=== PATIENT | male | born 2000 | race Hispanic/Latino ===

== ENCOUNTER 2021-09-16 13:10 | Emergency (ER) | payer SELFPAY ==
[2021-09-16 15:03] LABS: Urine Blood 3+ (Negative); Urine Glucose Negative (Negative); Urine Protein 3+ (Negative); Urine Specific Gravity 1.025 (1.005-1.030)
[2021-09-16 15:06] LABS: Urine Appearance HAZY (Clear); Urine Color Red (Yellow); Urine Microscopic Reflex ORDER UMIC
[2021-09-16 15:11] LABS: Urine Bacteria >50 /HPF (NONE SEEN); Urine RBC TNTC /HPF (NONE SEEN)
[2021-09-16 15:13] LABS: Urine Bilirubin 1+ (Negative)
--- NOTE | 2021-09-16 15:22 | RAD REPORT ---
EXAM DESCRIPTION: CT - Stone Protocol - 09/16/2021 3:08 pm CLINICAL HISTORY: Flank pain. hematuria COMPARISON: No comparisons TECHNIQUE: Axial images were obtained without oral or IV contrast. Lack of contrast limits solid org an and vascular assessment. The pryps-um-vesl spans the entirety of the system partially obscuring uppermost abdomen and lung bases. Coronal reformatted images were obtained and reviewed. All CT scans are performed using dose optimization technique as appropriate and may include automated exposure control or mA/KV adjustment according to patient size. FINDINGS: The lower lung medina are clear. Imaged portions of the liver and spleen show no suspicious findings on non-contrast imaging. The panc reas and adrenal glands are normal. No pathologic lymphadenopathy in the abdomen or pelvis. No urinary tract stones or obstructive uropathy. No bowel obstruction, free air, free fluid or abscess. Normal appendix noted. No significant bony abnormality. IMPRESSION: No urinary tract stones or obstructive uropathy.
[2021-09-16] MEDS ORDERED: LIDOCAINE 1% MPF 5 ML VIAL ONE (16:21)
[2021-09-16] MEDS ORDERED: CEFTRIAXONE 1000 MG/VIAL ONE (16:22)
--- NOTE | 2021-09-16 17:16 | ER ---
Nurse's Notes [facility] Name: Fco Bean Age: 21 yrs Sex: Male : 2000 Arrival Date: 09/16/2021 Time: 13:10 Bed 11 Private MD: Diagnosis: Hematuria, unspecified;UTI/ Urinary tract infection, site not specified Presentation: 09/16 13:41 Chief complaint: Patient states: thinks he has a UTI, is having some blood in urine. iw Coronavirus screen: At this time, the client does not indicate any symptoms associated with coronavirus-19. Ebola Screen: Patient negative for fever greater than or equal to 101.5 degrees Fahrenheit, and additional compatible Ebola Virus Disease symptoms Patient denies exposure to infectious person. Patient denies travel to an Ebola-affected area in the 21 days before illness onset. No symptoms or risks identified at this time. Initial Sepsis Screen: Does the patient meet any 2 criteria? No. Patient's initial sepsis screen is negative. Does the patient have a suspected source of infection? No. Patient's initial sepsis screen is negative. Risk Assessment: Do you want to hurt yourself or someone else? Patient reports no desire to harm self or others. Onset of symptoms was September 16, 2021. 13:41 Method Of Arrival: Ambulatory iw 13:41 Acuity: CHERYL 4 iw Historical: - Allergies: 13:42 No Known Allergies; iw - Home Meds: 13:42 None [Active]; iw - PMHx: 13:42 None; iw Vital Signs: 13:41 Resp 16; Temp 98.4; Pulse Ox 96% on R/A; iw 13:42 BP 139 / 80; Pulse 100; iw ED Course: 13:10 Patient arrived in ED. as 13:34 Leonid Moura PA is PHCP. [facility] 13:34 Adair Metz MD is Attending Physician. [facility] 13:41 Madison Moralez, RN is Primary Nurse. iw 13:42 Triage completed. iw 15:10 CT Stone Protocol In Process Unspecified. EDMS 15:23 Urine Culture Sent. [facility] 17:15 Georgi Cantor MD is Referral Physician. [facility] Administered Medications: 16:34 Drug: Rocephin (cefTRIAXone) 1 grams Route: IM; Site: right deltoid; iw Outcome: 17:15 Discharge ordered by MD. mcgarry 17:33 Patient left the ED. iw Signatures: Dispatcher [employer] EDMS Leonid Moura PA PA jmm Martinez, Amelia as Williams, Irene, NIKOS RN Jigna Gifford [email or web address]
--- NOTE | 2021-09-16 17:16 | EDPHYS ---
Physician Documentation [facility] Name: Fco Bean Age: 21 yrs Sex: Male : 2000 Arrival Date: 09/16/2021 Time: 13:10 Bed 11 Private MD: BRANDEE Physician Adair Metz HPI: 09/16 13:40 This 21 yrs old Male presents to ER via Ambulatory with complaints of Urinary jmm Problem. 13:40 The patient presents with urinary symptoms, dysuria, hematuria. Onset: The jmm symptoms/episode began/occurred acutely, today. Modifying factors: The symptoms are alleviated by nothing, the symptoms are aggravated by nothing. Associated signs and symptoms: Pertinent negatives: fever, vomiting. The patient has experienced a previous episode, and the symptoms today are exactly the same. Patient states hematuria began today with painful urination. Denies abdominal pain, flank pain. Similar episode occurred once before. Denies history of kidney stone. . Historical: - Allergies: 13:42 No Known Allergies; iw - Home Meds: 13:42 None [Active]; iw - PMHx: 13:42 None; iw ROS: 13:40 Constitutional: Negative for fever, chills, and weight loss, Cardiovascular: Negative jmm for chest pain, palpitations, and edema, Respiratory: Negative for shortness of breath, cough, wheezing, and pleuritic chest pain. 13:40 Abdomen/GI: Negative for nausea and vomiting. 13:40 : Positive for urinary symptoms. 13:40 All other systems are negative. Exam: 13:40 Constitutional: This is a well developed, well nourished patient who is awake, alert, jmm and in no acute distress. Head/Face: atraumatic. Eyes: EOMI, no conjunctival erythema appreciated ENT: Moist Mucus Membranes Neck: Trachea midline, Supple Chest/axilla: Normal chest wall appearance and motion. Cardiovascular: Regular rate and rhythm. No edema appreciated Respiratory: Normal respirations, no respiratory distress appreciated Abdomen/GI: Non distended, soft Back: Normal ROM Skin: General appearance color normal MS/ Extremity: Moves all extremities, no obvious deformities appreciated, no edema noted to the lower extremities Neuro: Awake and alert Psych: Behavior is normal, Mood is normal, Patient is cooperative and pleasant Vital Signs: 13:41 Resp 16; Temp 98.4; Pulse Ox 96% on R/A; iw 13:42 BP 139 / 80; Pulse 100; iw MDM: 13:40 Patient medically screened. [facility] 17:14 Data reviewed: vital signs, nurses notes. Counseling: I had a detailed discussion with zeferino the patient and/or guardian regarding: the historical points, exam findings, and any diagnostic results supporting the discharge/admit diagnosis, lab results, the need for outpatient follow up, to return to the emergency department if symptoms worsen or persist or if there are any questions or concerns that arise at home. 09/16 13:42 Order name: Urine Culture [facility] 09/16 14:49 Order name: CT Stone Protocol; Complete Time: 15:45 [facility] 09/16 15:04 Order name: Urinalysis; Complete Time: 15:45 [facility] 09/16 15:10 Order name: Urine Microscopic Only; Complete Time: 15:45 [facility] 09/16 13:42 Order name: Urine Dipstick-Ancillary (obtain specimen); Complete Time: 14:31 [facility] Administered Medications: 16:34 Drug: Rocephin (cefTRIAXone) 1 grams Route: IM; Site: right deltoid; iw Disposition Summary: 09/16/21 17:15 Discharge Ordered Location: Home [facility] Condition: Stable [facility] Diagnosis - Hematuria, unspecified [facility] - UTI/ Urinary tract infection, site not specified [facility] Followup: [facility] - With: Georgi Cantor MD - When: 2 - 3 days - Reason: Recheck today's complaints, Continuance of care, Re-evaluation by your physician Discharge Instructions: - Discharge Summary Sheet [facility] - Hematuria, Adult jm - Urinary Tract Infection, Adult [facility] Forms: - Medication Reconciliation Form [facility] - Work release form [facility] - Thank You Letter [facility] - Antibiotic Education [facility] - Prescription Opioid Use [facility] Prescriptions: - cefpodoxime 200 mg Oral Tablet - take 1 tablet by ORAL route every 12 hours for 10 days with food; 20 tablet; [facility] Refills: 0, Product Selection Permitted Signatures: Dispatcher [employer] EDMS Leonid Moura PA PA jmm Williams, Irene, RN RN iw Corrections: (The following items were deleted from the chart) 15:10 14:33 URINALYSIS+[email or web address].LAB.BRZ ordered. [facility] EDIA
[2021-09-16 19:13] VITALS: TEMP 98.4; O2SAT 96
[2021-09-16 19:14] VITALS: BP 139/80
== END 2021-09-16 17:33 | disposition home or self-care (01) ==
LOC: ER 13:10
DX: N39.0 Urinary tract infection, site not specified (principal)
CPT/HCPCS: 74176; 76377; 81003; 81015; 87077; 87086; 87088; 87186; 96372; 99283